=== PATIENT | female | born 1955 | race Caucasian/White ===

== ENCOUNTER → 2020-03-07 14:33 | Outpatient (CLI) | payer MEDICARE, OTHER, SELFPAY | PROVIDERS: Family Provider Family Medicine; PCP Family Medicine; Referring Provider Family Medicine; Visit Provider Family Medicine | DX: M85.852 Other specified disorders of bone density and structure, left thigh (principal); Z78.0 Asymptomatic menopausal state; Z90.722 Acquired absence of ovaries, bilateral; Z82.62 Family history of osteoporosis | CPT/HCPCS: 77080 ==

== ENCOUNTER → 2023-03-22 12:17 | Outpatient (CLI) | payer MEDICARE, OTHER, SELFPAY ==
--- NOTE | 2023-03-22 | DI.US.S_ITS ---
PROCEDURE: US CAROTID DOPPLER BI INDICATIONS: HYPERTENSION TECHNIQUE: Color and pulse Doppler interrogation was performed of both carotid systems, with image documentation and velocity measurements. COMPARISON: None. FINDINGS: Stenosis calculations are based on SRU (Society of Radiologists in Ultrasound) criteria. Right side: Brachial blood pressure: 148/73 mm Hg. Common carotid artery peak systolic velocity: 92 cm/sec. Internal carotid artery peak systolic velocity: 105 cm/sec. Internal carotid artery end diastolic velocity: 32 cm/sec. External carotid artery peak systolic velocity: 76 cm/sec. ICA/CCA peak systolic ratio: 1.1 . Palma scale imaging description: Minimal plaque Percent internal carotid artery stenosis: Less than 50 % stenosis. Vertebral artery: Flow direction is antegrade. Left side: Brachial blood pressure: 145/70 mm Hg. Common carotid artery peak systolic velocity: 116 cm/sec. Internal carotid artery peak systolic velocity: 86 cm/sec. Internal carotid artery end diastolic velocity: 28 cm/sec. External carotid artery peak systolic velocity: 81 cm/sec. ICA/CCA peak systolic ratio: 0.7 . Palma scale imaging description: Mild plaque Percent internal carotid artery stenosis: Less than 50 % stenosis. Vertebral artery: Flow direction is antegrade. IMPRESSION: 1. Right ICA: Less than 50 % stenosis. 2. Left ICA: Less than 50 % stenosis. 3. Antegrade flow in the bilateral vertebral arteries. Dictated by: Paul Stark M.D. on 03/22/2023 at 21:04 Approved by: Paul Stark M.D. on 03/22/2023 at 21:06
== END ==
PROVIDERS: Family Provider Family Medicine; PCP Family Medicine; Referring Provider Family Medicine; Visit Provider Family Medicine
DX: I65.23 Occlusion and stenosis of bilateral carotid arteries (principal); R55 Syncope and collapse; I10 Essential (primary) hypertension; R42 Dizziness and giddiness; M54.42 Lumbago with sciatica, left side
CPT/HCPCS: 93880

== ENCOUNTER → 2023-03-28 08:09 | Outpatient (CLI) | payer MEDICARE, OTHER, SELFPAY ==
--- NOTE | 2023-03-28 | DI.ECHO.S_ITS ---
[facility] +---------+ : : [address] [place] : : : : [id number] : : : : Phone: [phone] Echocardiogram Report + + :Name: MARCOS JOYA Study Date: 03/28/2023 Height: 67 in : :[facility] ReadingLocation: Weight: 175 lb : : Gender: Female BSA: 1.9 m2 : :: 1955 Age: 67 yrs BP: 135/72 mmHg: :Reason For Study: Near Syncope : :Ordering Physician: NARAYAN, : :ISIS Performed By: Agnieszka Quarles : :Referring: ISIS BUSCH : + + Interpretation Summary 1) Normal left ventricular size, wall motion, and systolic function (EF 55- 60%). 2) Normal right ventricular size and function. 3) No significant valvular abnormalities. 4) No prior Echo available for comparison. Procedure: A two-dimensional transthoracic echocardiogram with color flow and Doppler was performed. The study quality was technically adequate. There is no prior echocardiogram noted for this patient. The patient was in normal sinus rhythm during the exam. Left Ventricle: The left ventricle is normal in size. There is mild concentric left ventricular hypertrophy. The ejection fraction is estimated to be 55-60%. Left ventricular systolic function appears normal without focal wall motion abnormalities. Diastolic parameters suggest a relaxation abnormality of the left ventricle, consistent with probable normal filling pressures. Right Ventricle: The right ventricle is normal size. The right ventricular systolic function is normal. Atria: The left atrial size is normal. Right atrial size is normal. Mitral Valve: The mitral valve leaflets appear mildly thickened, but open well. There is no mitral valve stenosis. There is mild mitral regurgitation. Aortic Valve: The aortic valve is trileaflet. The aortic valve opens well. There is no aortic valve stenosis. No aortic regurgitation is present. Tricuspid Valve: The tricuspid valve is normal. There is no tricuspid stenosis. There is trace tricuspid regurgitation. Pulmonary artery pressures cannot be estimated because of the lack of a measurable TR jet velocity. Pulmonic Valve: The pulmonic valve leaflets are thin and pliable; valve motion is normal. There is no pulmonic valvular stenosis. There is no pulmonic valvular regurgitation. Great Vessels: The aortic root is normal size. The ascending aorta is normal in size. The pulmonary artery is normal size. The IVC is of normal diameter and collapses greater than 50% with a sniff. This suggests a low right atrial pressure of 3 mm Hg. Pericardium/ Pleura There is a trivial to small pericardial effusion noted. There is no pleural effusion. MMode/2D Measurements & Calculations LVIDd: 4.8 cm LVOT diam: 1.8 cm LVIDs: 3.4 cm Ao root diam: 2.6 cm FS: 29.2 % asc Aorta Diam: 2.7 cm IVSd: 1.1 cm LVPWd: 1.2 cm LV huertas. diameter/BSA (cm/m^2): 2.5 LV sys. diameter/BSA (cm/m^2): 1.8 LA A2 area: 16.9 cm2 RA long axis: 4.4 cm LA A4 area: 12.9 cm2 RA area: 10.4 cm2 LA length (vol): 5.0 cm RA vol: 20.8 ml LA vol: 37.0 ml RA : 10.9 ml/m2 LA vol index: 19.4 ml/m2 RVD1 (basal): 3.1 cm LVLs ap4: 6.3 cm LVLd ap2: 6.5 cm TAPSE_phl: 2.0 cm LVLs ap2: 5.6 cm Doppler Measurements & Calculations Ao V2 max: 128.0 cm/sec LVOT Max Olegario: 100.0 cm/sec Ao V2 mean: 91.4 cm/sec LV V1 max P.0 mmHg Ao max P.0 mmHg LV V1 VTI: 26.0 cm Ao mean P.0 mmHg HARESH(I,D): 1.9 cm2 Ao V2 VTI: 34.2 cm HARESH(V,D): 2.0 cm2 sev ratio: 0.76 HARESH indexed to BSA (cm^2/m^2): 1.0 MV E max olegario: 99.4 cm/sec PA V2 max: 72.6 cm/sec MV A max olegario: 70.2 cm/sec PA V2 mean: 56.4 cm/sec MV E/A: 1.4 PA mean P.0 mmHg Med Peak E' Olegario: 8.1 cm/sec PA pr(Accel): -4.3 mmHg E/E' med: 12.2 Lat Peak E' Olegario: 8.3 cm/sec E/E' lat: 11.9 E/e' average: 12.1 MV dec time: 0.16 sec SV(LVOT): 66.2 ml AV VR_phl: 0.78 HARESH(VTI)/BSA_phl: 1.0 MV P1/2t-pr_phl: 46.0 msec Reading Physician:12:46 PM
== END ==
PROVIDERS: Family Provider Family Medicine; PCP Family Medicine; Referring Provider Family Medicine; Visit Provider Family Medicine
DX: I34.0 Nonrheumatic mitral (valve) insufficiency (principal); R55 Syncope and collapse; R42 Dizziness and giddiness
CPT/HCPCS: 93306

== ENCOUNTER → 2023-06-21 14:16 | Outpatient (CLI) | payer MEDICARE, OTHER, SELFPAY ==
--- NOTE | 2023-06-21 | DI.RAD.S_ITS ---
Bone Density Report Name: MARCOS JOYA Age: 68 Sex: Female Ethnicity: White Date of : 1955 Indication: postmenopausal; screening for osteoporosis; Referring Provider: ISIS BUSCH Study: Bone densitometry was performed. Exam Date: June 21, 2023 Accession number: [id number] Bone Density: Region BMD T-score Z-score Classification AP Spine(L1, L3, L4) 0.996 -0.5 1.6 Normal Femoral Neck (Left) 0.683 -1.5 0.3 Osteopenia Total Hip (Left) 0.837 -0.9 0.6 Normal Femoral Neck (Right) 0.725 -1.1 0.7 Osteopenia Total Hip (Right) 0.826 -0.9 0.6 Normal Total Hip Mean 0.831 -0.9 0.6 Normal World Health Organization criteria for BMD impression classify patients as: Normal (T-score at or above -1.0), Osteopenia (T-score between -1.0 and -2.5), or Osteoporosis (T-score at or below -2.5). 10-year Fracture Risk(1): Major Osteoporotic Fracture 10.0% Hip Fracture 1.4% Reported Risk Factors: [place] (), Neck BMD=0.683, BMI=26.6 (1) FRAX(R) Version 3.08. Fracture probability calculated for an untreated patient. Fracture probability may be lower if the patient has received treatment. Previous Exams: -- Region Exam Age BMD T-score BMD Change BMD Change Date g/cm2 vs Baseline vs Previous -- AP Spine (L1,L3-L4) 06/21/2023 68 0.996 -0.5 0.011 (1.1%)# -0.034 (-3.3%)# 03/07/2020 64 1.030 -0.2 0.045 (4.6%)* 0.045 (4.6%)* 08/11/2015 60 0.985 -0.6 Total Hip(Left) 06/21/2023 68 0.837 -0.9 -0.027 (-3.1%)# -0.012 (-1.4%)# 03/07/2020 64 0.848 -0.8 -0.015 (-1.8%) -0.015 (-1.8%) 08/11/2015 60 0.864 -0.6 Total Hip(Right) 06/21/2023 68 0.826 -0.9 0.005 (0.6%)# -0.028 (-3.3%)# 03/07/2020 64 0.855 -0.7 0.033 (4.1%)* 0.033 (4.1%)* 08/11/2015 60 0.821 -1.0 -- *Denotes significance at 95% confidence level, LSC for AP Spine = 0.022 g/cm2, LSC for Total Hip = 0.027 g/cm2 Rate of change results reflect vertebral levels common to all scans # Denotes dissimilar scan types or analysis methods Impression: The patient has low bone mass, based on the Left Femoral Neck T-score. The patient has an estimated ten-year risk of hip fracture of 1.4% and an estimated ten-year risk of major fracture of 10%, based on the WHO FRAX algorithm. No significant bone loss was observed. Discussion: BONE DENSITY IS LOW AT ONE OR MORE SKELETAL SITES. This patient's lowest T-score is low at one or more skeletal sites. It meets the World Health Organization's (WHO) criteria for low bone mass (T-score between -1.0 and -2.5). The patient's 10-year risk of fracture as calculated by FRAX is less than the threshold where pharmacological therapy is recommended by the National Osteoporosis Foundation (NOF). However, all treatment decisions require clinical judgment and consideration of individual patient factors, including patient preferences, comorbidities, previous drug use, risk factors not captured in the FRAX model (e.g., frailty, falls, vitamin D deficiency, increased bone turnover, interval significant decline in bone density) and possible under or overestimation of fracture risk by FRAX. The patient should follow a healthful lifestyle (good nutrition with adequate calcium and vitamin D, and appropriate weight-bearing exercise). Follow-Up: Consider repeating this study in 2 to 3 years to reassess this patient's status, or sooner if there is some new clinical indication. Reported by: TERENCE GUERRA MD on 06/21/2023 3:05:00 PM.
== END ==
PROVIDERS: Family Provider Family Medicine; PCP Family Medicine; Referring Provider Family Medicine; Visit Provider Family Medicine
DX: M85.852 Other specified disorders of bone density and structure, left thigh (principal); M85.851 Other specified disorders of bone density and structure, right thigh
CPT/HCPCS: 77080

== ENCOUNTER 2024-05-05 19:54 | Emergency (ER) | payer MEDICARE, OTHER, SELFPAY ==
[2024-05-05 19:57] VITALS: BP 154/77; PULSE 65; RESP 16; TEMP 36.5; O2SAT 97; BMI 60.4
--- NOTE | 2024-05-05 20:27 | PC.NURSE ---
Mulitple laceration noted to right dorsal fifth and fourth digits and to left thumb. Bleeding controled.
--- NOTE | 2024-05-05 21:50 | ED.WOUNDLAC ---
HPI - Wound/Laceration General Chief Complaint: Wound/Laceration Stated Complaint: hand laceration Time Seen by Provider: 05/05/24 19:54 Source: patient Mode of arrival: Ambulatory History of Present Illness HPI narrative: 68-year-old female presents for evaluation of lacerations to the knuckles of her 4th and 5th right hand as well as the knuckle of her left thumb. Patient was opening a package of knives when she accidentally cut herself. She is up-to-date on tetanus. Related Data Allergies Allergy/AdvReac Type Severity Reaction Status Date / Time adhesive tape [ADHESIVE TAPE] Allergy Mild BLITSTERS Unverified 12/21/17 12:29 ibuprofen [IBUPROFEN] Allergy Mild SOFT Unverified 12/21/17 12:29 TISSUE INFLAMATION Patient History Social History Smoking Status: Never smoker Smoking Status: Never smoker alcohol intake frequency: 3 or more drinks per day Alcohol type: beer and wine Substance Use Type: does not use Exam Initial Vital Signs Initial Vital Signs: Vital Signs Temperature 97.7 F 05/05/24 19:57 Pulse Rate 65 05/05/24 19:57 Respiratory Rate 16 05/05/24 19:57 Blood Pressure 154/77 H 05/05/24 19:57 Pulse Oximetry 97 05/05/24 19:57 Oxygen Delivery Method Room Air 05/05/24 19:57 Const: Awake, alert, no acute distress, nontoxic appearing MSK: Atraumatic, full range of motion Skin: Warm, Dry, 1.5 cm laceration over proximal knuckles of R 4th and 5th digits, L thumb knuckle Neuro: AO x3, CN II-XII grossly intact, moves all extremities Course Vital Signs Vital signs: Vital Signs - 8 hr 05/05/24 19:57 05/05/24 22:07 Temperature 97.7 F 98.2 F Pulse Rate 65 63 Respiratory Rate 16 18 Blood Pressure 154/77 H 153/76 H Pulse Oximetry 97 98 Oxygen Delivery Method Room Air Room Air MDM - Wound/Laceration MDM Narrative Medical decision making narrative: superficial lacerations over R hand and L thumb. No evidence of tendon involvement. Patient declined sutures. Dermabond applied to lacerations, geovanni tape splint applied. Wound care instructions discussed at bedside. Discharge Plan Departure Patient Disposition: Home Clinical Impression: Finger laceration Instructions: DI for Laceration Repair Activity Restrictions/Additional Instructions: Keep your wound clean and dry for the next 2-3 days. If you get them wet pat the lacerations dry. Referrals: Norman Navarrete MD [Primary Care Provider] - Stand Alone Forms: Patient Portal/API
[2024-05-05 22:07] VITALS: BP 153/76; PULSE 63; RESP 18; TEMP 36.8; O2SAT 98
== END 2024-05-05 22:08 | disposition home or self-care (01) ==
PROVIDERS: Emergency Provider Emergency Medicine; Family Provider Family Medicine; PCP Family Medicine
DX: S61.411A Laceration without foreign body of right hand, initial encounter (principal); S61.012A Laceration without foreign body of left thumb without damage to nail, initial encounter; W26.0XXA Contact with knife, initial encounter
CPT/HCPCS: 99281; 99283

== ENCOUNTER → 2024-07-26 15:45 | Outpatient (CLI) | payer MEDICARE, OTHER, SELFPAY ==
--- NOTE | 2024-07-26 | DI.RAD.S_ITS ---
PROCEDURE: XR HIP W PEL IF DONE RT 2V INDICATIONS: Acute right sided low back pain with right sided sciatica TECHNIQUE: AP pelvis with lateral view(s) of the right hip(s). COMPARISON: [facility], , [id number] W PEL IF PERFORMED, 12/05/2017, 16:11. FINDINGS: Bones: Normal mineralization. No fractures. Severe right femoroacetabular joint space narrowing and mild femoral head spur formation. Moderate acetabular and femoral subarticular sclerosis. The femoral head demonstrates mild cortical collapse along the anterior margin seen on the frog-leg view. Mild, stable left femoroacetabular joint space loss. Degenerative disc change at L4-5. Soft tissues: The visualized bowel gas pattern is normal. No suspicious soft tissue calcifications. IMPRESSION: Interval progression of right femoroacetabular joint space loss and secondary osteoarthritic changes. Femoral head articular surface deformity may indicate an element of osteonecrosis. Consider hip MRI for further detail. No significant progression in left hip joint degeneration. Dictated by: Luanne Jean M.D. on 07/27/2024 at 0:12 Approved by: Luanne Jean M.D. on 07/27/2024 at 0:16
--- NOTE | 2024-07-26 15:47 | DI.RAD.S_ITS ---
PROCEDURE: XR LUMBAR SPINE 2-3V INDICATIONS: Lumbago with sciatica, right side TECHNIQUE: Three views of the lumbar spine were acquired. COMPARISON: None. FINDINGS: Bones: Five [id number] vertebrae are present. Moderate S-shaped thoracolumbar scoliosis. Leftward apex at the L4 level with trace left lateral L4-5 subluxation. Trace retrolisthesis L4-5 otherwise normal AP alignment. There is severe diffuse L2-3 disc height loss and severe asymmetric right-sided L3-4 and L4-5 disc height loss. Endplate sclerosis at the L2-3 level. No vertebral body compression fractures. No suspicious bony lesions. Soft tissues: Overlying bowel gas pattern is normal. No suspicious soft tissue calcifications. Cholecystectomy clips. IMPRESSION: Multilevel spondylosis and scoliosis. Several opportunities for right-sided neural foraminal narrowing. Consider MRI. Dictated by: Luanne Jean M.D. on 07/27/2024 at 0:17 Approved by: Luanne Jean M.D. on 07/27/2024 at 0:20
== END ==
PROVIDERS: Family Provider Family Medicine; PCP Family Medicine; Referring Provider Family Medicine; Visit Provider Family Medicine
DX: M54.41 Lumbago with sciatica, right side (principal); M47.816 Spondylosis without myelopathy or radiculopathy, lumbar region; M41.9 Scoliosis, unspecified
CPT/HCPCS: 72100; 73502

== ENCOUNTER → 2024-07-31 16:14 | Outpatient (CLI) | payer MEDICARE, OTHER, SELFPAY ==
--- NOTE | 2024-07-31 16:15 | DI.MRI.S_ITS ---
PROCEDURE: MR HIP RT WO CON INDICATIONS: right hip pain TECHNIQUE: Noncontrast coronal T1 spin echo and STIR through the bony pelvis. Coronal and axial T2 fast spin echo with fat saturation, sagittal T1 spin echo, and oblique axial T2 fast spin echo with fat saturation through the hip. COMPARISON: None. FINDINGS: Image quality: Excellent. Bones and joints: Asymmetric moderate to severe right hip joint osteoarthritic changes are seen with near complete loss of joint space, extensive subchondral sclerosis and edema and prominent lateral marginal osteophyte formation. No acute fracture or dislocation. No definite avascular necrosis of the femoral heads. Degenerative disc disease in visualized lower lumbar spine is seen. Tendons and ligaments: Distal right gluteus medius and minimus tendinosis at their insertions on greater trochanter is seen. Small amount of fluid within trochanteric bursa is noted. The nearby proximal iliotibial band also appears intact. The iliopsoas tendon appears intact, without adjacent bursal fluid collections or evidence for impingement syndrome. The origin of the hamstring tendon is intact at the ischial tuberosity. Labrum and cartilage: Diffuse loss of articulating cartilage over right femoral head is seen. 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 Soft tissues: Visualized muscles demonstrate normal bulk and internal signal. Quadratus femoris muscle demonstrates no internal edema to suggest ischiofemoral impingement. The proximal sciatic neurovascular bundle appears normal adjacent to the hamstring tendons. No free pelvic fluid. Bladder wall thickness is normal. Genitourinary structures and bowel loops appear normal where visualized. IMPRESSION: 1. Asymmetric moderate to severe right hip joint osteoarthritis. Mild edema involving weight-bearing portion of right femoral head and adjacent right acetabular roof. No acute fracture or dislocation. No definite avascular necrosis of femoral heads. Degenerative disc disease in visualized lower lumbar spine. 2. Distal right gluteus medius and minimus tendinosis. Small amount of fluid within trochanteric bursa, low-grade bursitis cannot be excluded. No other muscle or tendon signal abnormalities. 3. 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 Dictated by: Mike Watson M.D. on 08/01/2024 at 19:04 Approved by: Mike Watson M.D. on 08/01/2024 at 19:09
== END ==
PROVIDERS: Family Provider Family Medicine; PCP Family Medicine; Referring Provider Family Medicine; Visit Provider Family Medicine
DX: M16.11 Unilateral primary osteoarthritis, right hip (principal); M25.551 Pain in right hip; M51.369 Other intervertebral disc degeneration, lumbar region without mention of lumbar back pain or lower extremity pain
CPT/HCPCS: 73721